=== PATIENT | female | born 1955 | race Caucasian/White ===

== ENCOUNTER 2018-01-29 12:28 | Inpatient (IN) | payer MEDICARE, BC ==
[~2018-01-29] VITALS: Ht 162.6 cm; Wt 44.5 kg
[~2018-01-29 12:28] MED LIST: CYAN500T15 PO; FLUC200T PO; GABA-532 PO; HALDOL TOP; LEVE750T6 PO; LISI-604 PO; LORA0.5T PO; METF500T4 PO; MULT-1133 PO; MYCOL15CR TP; QUET25TA PO; SENN-161 PO; SYN0.112T PO
[2018-01-29 13:08] LABS: CLARITY,URINE TURBID (Clear); COLOR,URINE YELLOW (Yellow); GLUCOSE, URINE >=1000 mg/dl (Neg); KETONES,URINE 40 mg/dl (Neg); LEUKOCYTE ESTERASE ,URINE MODERATE (Neg); NITRITES, URINE NEGATIVE (Neg); OCCULT BLOOD,URINE MODERATE (Neg); PROTEIN,URINE 30 mg/dl (Neg); UROBILINOGEN,URINE 0.2 E.U/dL (0.2-1.0)
[2018-01-29 13:11] LABS: UA COLLECTION TYPE STRAIGHT CATH
[2018-01-29 13:20] LABS: BACTERIA,URINE 4+ /HPF (Neg); SQUAMOUS EPITHELIAL CELL,UR NONE SEEN /LPF (FEW); WBC CLUMPS,URINE MANY /HPF (NEGATIVE); WBC,URINE TNTC /HPF (0-4)
[2018-01-29 13:40] LABS: BASOPHILS % (AUTO) 0 % (0-1); EOSINOPHILS # (AUTO) 0.1 X10'3 (0-0.9); EOSINOPHILS % (AUTO) 1.2 % (0-6); HEMATOCRIT 42.2 % (35.0-45.0); HEMOGLOBIN 14.2 g/dl (12.0-16.0); LYMPHOCYTES # (AUTO) 1.2 X10'3 (1.1-4.8); MEAN CORPUSCULAR HEMOGLOBIN 31.4 PG (27.0-31.0); MEAN CORPUSCULAR HGB CONC 33.7 % (33.0-36.5); MEAN CORPUSCULAR VOLUME 93.1 FL (78-98); MEAN PLATELET VOLUME 7.9 FL (7.4-10.4); MONOCYTES # (AUTO) 0.7 X10'3 (0-0.9); MONOCYTES % (AUTO) 6.9 % (2-12); NEUTROPHILS # (AUTO) 8.2 X10'3 (1.8-7.7); NEUTROPHILS % (AUTO) 79.9 % (42-75); PLATELET COUNT 320 X10'3 (140-440); RED BLOOD COUNT 4.53 X10'6 (4.20-5.60); RED CELL DISTRIBUTION WIDTH 12.4 % (11.5-14.5); WHITE BLOOD COUNT 10.3 X10'3 (4.5-11.0)
[2018-01-29] MEDS ORDERED: normal saline 1000ML IV soln IV ONE (13:55)
[2018-01-29 14:03] LABS: ALANINE AMINOTRANSFERASE 29 U/L (12-78); ALBUMIN 3.6 G/DL (3.4-5.0); ALBUMIN/GLOBULIN RATIO 0.7 (1.1-1.5); ALKALINE PHOSPHATASE 84 IU/L (46-116); ANION GAP 13 (8-16); ASPARTATE AMINO TRANSFERASE 14 U/L (10-37); BILIRUBIN,TOTAL 0.4 MG/DL (0.1-1.0); BLOOD UREA NITROGEN 21 MG/DL (7-18); BUN/CREATININE RATIO 25.9 (6.6-38.0); CALCIUM 9.4 MG/DL (8.5-10.1); CHLORIDE 98 MMOL/L (99-107); CREATININE 0.81 MG/DL (0.40-0.90); GLUCOSE 167 MG/DL (70-104); POTASSIUM 4.2 MMOL/L (3.5-5.1); SODIUM 139 MMOL/L (135-145); TOTAL CARBON DIOXIDE 28.4 MMOL/L (24-32); TOTAL PROTEIN 8.9 G/DL (6.4-8.2); eGFR 71 ML/MIN
[2018-01-29] MEDS ORDERED: doxycycline inj 100 MG in normal saline 100ml IV soln 100 ML IV STA (14:35)
[2018-01-29] MEDS ORDERED: mag hydrox/Alum hydrox/simeth 30ml oral suspension PO PRN (15:15)
[2018-01-29] MEDS ORDERED: magnesium Cl slow-release 64mg tablet PO PRN (15:15)
[2018-01-29] MEDS ORDERED: magnesium 2GM in 50ml NS 50 ML IV PRN (15:15)
[2018-01-29] MEDS ORDERED: acetaminophen 325mg tablet PO PRN (15:15)
[2018-01-29] MEDS ORDERED: magnesium 4gm in 100ml NS 100 ML IV PRN (15:15)
[2018-01-29] MEDS ORDERED: ondansetron/PF 4mg/2ml inj IV PRN (15:15)
[2018-01-29] MEDS ORDERED: magnesium hydroxide 30ml (MOM) UD suspension PO PRN (15:15)
[2018-01-29] MEDS ORDERED: potassium Cl 40MEQ/NS 500ml 500 ML IV PRN (15:15)
[2018-01-29] MEDS ORDERED: bisacodyl 10mg suppository rectal RC PRN (15:15)
[2018-01-29] MEDS ORDERED: potassium Cl 20 mEq SR tablet PO PRN ×2 (15:15)
[2018-01-29] MEDS ORDERED: insulin Lispro (HumaLOG) vial - multi-dose SQ SCH (15:25)
[2018-01-29] MEDS ORDERED: glucagon, human recombinant 1mg kit SUBCUT PRN (15:25)
[2018-01-29] MEDS ORDERED: MESSAGE TO PHARMACY PO ONE (15:25)
[2018-01-29] MEDS ORDERED: dextrose 50%-water 50ml dispensing syringe IV PRN ×2 (15:25)
[2018-01-29] MEDS ORDERED: dextrose ORAL solution 15 GM/59 ML bottle PO PRN ×2 (15:25)
[2018-01-29] MEDS: normal saline 1000ml 1,000 ML IV SCH (15:28)
[2018-01-29 15:54] LABS: HEMOGLOBIN A1C 7.6 % (4.5-6.2)
[2018-01-29 17:30] VITALS: BP 140/85
[2018-01-29] MEDS: cefTRIAXone 1g/NS 100ml IVPB 100 ML IV SCH (17:49)
[2018-01-29 18:00] VITALS: BP 151/94
[2018-01-29] MEDS: docusate sod 100mg capsule PO SCH (20:00)
[2018-01-29] MEDS: non-formulary drug (Levetiracetam (Keppra) 1 TAB) PO SCH (20:00)
[2018-01-29] MEDS: lactobacillus rhamnosus 10,000 MMU CELLS/CAPSULE PO SCH ×2 (20:00→22:23)
[2018-01-29] MEDS: QUEtiapine 25mg tablet PO SCH ×2 (21:00→22:23)
[2018-01-29] MEDS: insulin glargine (Lantus) pen - multi-dose SQ SCH (22:22)
[2018-01-30] VITALS: BP 113/74
[2018-01-30] MEDS: normal saline 1000ml 1,000 ML IV SCH ×3 (01:20→15:10)
[2018-01-30 05:45] LABS: ALBUMIN 2.8 G/DL (3.4-5.0); ANION GAP 14 (8-16); BLOOD UREA NITROGEN 21 MG/DL (7-18); BUN/CREATININE RATIO 22.1 (6.6-38.0); CALCIUM 7.9 MG/DL (8.5-10.1); CHLORIDE 105 MMOL/L (99-107); CREATININE 0.95 MG/DL (0.40-0.90); GLUCOSE 244 MG/DL (70-104); MAGNESIUM 1.2 MG/DL (1.5-2.4); POTASSIUM 3.8 MMOL/L (3.5-5.1); SODIUM 142 MMOL/L (135-145); eGFR 59 ML/MIN
[2018-01-30 06:53] LABS: BASOPHILS % (AUTO) 0 % (0-1); EOSINOPHILS # (AUTO) 0.1 X10'3 (0-0.9); EOSINOPHILS % (AUTO) 0.8 % (0-6); HEMATOCRIT 44.5 % (35.0-45.0); HEMOGLOBIN 15.1 g/dl (12.0-16.0); LYMPHOCYTES # (AUTO) 0.4 X10'3 (1.1-4.8); LYMPHOCYTES % (AUTO) 2.2 % (21-51); MEAN CORPUSCULAR HGB CONC 33.9 % (33.0-36.5); MEAN CORPUSCULAR VOLUME 94.3 FL (78-98); MEAN PLATELET VOLUME 8.1 FL (7.4-10.4); MONOCYTES % (AUTO) 5.5 % (2-12); NEUTROPHILS # (AUTO) 17.2 X10'3 (1.8-7.7); NEUTROPHILS % (AUTO) 91.5 % (42-75); PLATELET COUNT 283 X10'3 (140-440); RED BLOOD COUNT 4.72 X10'6 (4.20-5.60); RED CELL DISTRIBUTION WIDTH 12.6 % (11.5-14.5); WHITE BLOOD COUNT 18.9 X10'3 (4.5-11.0)
[2018-01-30 07:10] VITALS: BP 119/85
[2018-01-30] MEDS: lactobacillus rhamnosus 10,000 MMU CELLS/CAPSULE PO SCH ×2 (07:28→20:00)
[2018-01-30] MEDS: non-formulary drug (Levetiracetam (Keppra) 1 TAB) PO SCH (07:29)
[2018-01-30] MEDS: docusate sod 100mg capsule PO SCH ×2 (07:29→20:00)
[2018-01-30] MEDS: K and/or MAG REPLACEMENT MC SCH (08:00)
[2018-01-30] MEDS: cefTRIAXone 1g/NS 100ml IVPB 100 ML IV SCH (08:01)
[2018-01-30] MEDS: enoxaparin 40mg/0.4ml syringe SUBCUT SCH (08:07)
[2018-01-30 11:00] VITALS: BP 120/81
[2018-01-30] MEDS: QUEtiapine 25mg tablet PO SCH ×2 (11:55→21:00)
[2018-01-30 19:00] VITALS: BP 113/80
[2018-01-30] MEDS: levetiracetam 250mg tablet PO SCH (20:00)
[2018-01-30] MEDS: insulin glargine (Lantus) pen - multi-dose SQ SCH (21:00)
[2018-01-31 00:04] VITALS: BP 128/77
[2018-01-31 05:14] LABS: BASOPHILS % (AUTO) 0.2 % (0-1); EOSINOPHILS % (AUTO) 0 % (0-6); HEMATOCRIT 33.6 % (35.0-45.0); HEMOGLOBIN 11.5 g/dl (12.0-16.0); LYMPHOCYTES # (AUTO) 0.7 X10'3 (1.1-4.8); LYMPHOCYTES % (AUTO) 5.5 % (21-51); MEAN CORPUSCULAR HEMOGLOBIN 31.9 PG (27.0-31.0); MEAN CORPUSCULAR HGB CONC 34.1 % (33.0-36.5); MEAN CORPUSCULAR VOLUME 93.8 FL (78-98); MONOCYTES # (AUTO) 0.7 X10'3 (0-0.9); NEUTROPHILS % (AUTO) 89.3 % (42-75); PLATELET COUNT 258 X10'3 (140-440); RED BLOOD COUNT 3.59 X10'6 (4.20-5.60); RED CELL DISTRIBUTION WIDTH 12.2 % (11.5-14.5); WHITE BLOOD COUNT 13.4 X10'3 (4.5-11.0)
[2018-01-31 05:26] LABS: ANION GAP 11 (8-16); BLOOD UREA NITROGEN 25 MG/DL (7-18); BUN/CREATININE RATIO 27.8 (6.6-38.0); CALCIUM 7.6 MG/DL (8.5-10.1); CHLORIDE 112 MMOL/L (99-107); GLUCOSE 82 MG/DL (70-104); MAGNESIUM 2.9 MG/DL (1.5-2.4); POTASSIUM 3.1 MMOL/L (3.5-5.1); SODIUM 145 MMOL/L (135-145); TOTAL CARBON DIOXIDE 22.1 MMOL/L (24-32); eGFR 63 ML/MIN
[2018-01-31] MEDS: cefTRIAXone 1g/NS 100ml IVPB 100 ML IV SCH (07:25)
[2018-01-31] MEDS: enoxaparin 40mg/0.4ml syringe SUBCUT SCH (07:25)
[2018-01-31 08:00] VITALS: BP 94/61
[2018-01-31] MEDS: K and/or MAG REPLACEMENT MC SCH (08:00)
[2018-01-31] MEDS: docusate sod 100mg capsule PO SCH (08:00)
[2018-01-31] MEDS: potassium Cl 40MEQ/NS 500ml 500 ML IV PRN ×2 (09:14→16:08)
[2018-01-31] MEDS: levetiracetam 250mg tablet PO SCH ×2 (09:48→20:06)
[2018-01-31] MEDS: lactobacillus rhamnosus 10,000 MMU CELLS/CAPSULE PO SCH ×2 (09:48→20:06)
[2018-01-31] MEDS: QUEtiapine 25mg tablet PO SCH ×2 (12:15→20:06)
[2018-01-31] MEDS: Potassium Cl inj 10 MEQ in normal saline 1000ml 1,000 ML IV SCH (14:26)
[2018-01-31] MEDS ORDERED: levoFLOXACIN-Levaquin 500mg/D5 100 ML IV SCH ×2 (18:20→19:12)
[2018-01-31 19:40] VITALS: BP 90/62
[2018-01-31] MEDS: docusate sodium 100mg/10ml UD cup PO SCH (20:06)
[2018-01-31] MEDS: insulin glargine (Lantus) pen - multi-dose SQ SCH (21:00)
[2018-01-31] MEDS: levoFLOXACIN-Levaquin 500mg/D5 100 ML IV SCH (21:57)
[2018-01-31] MEDS: insulin regular, human vial - multi-dose SQ SCH (21:59)
[2018-01-31 23:30] VITALS: BP 133/85
[2018-01-31 23:45] VITALS: BP 104/59
[2018-02-01] MEDS: insulin regular, human vial - multi-dose SQ SCH (02:28)
[2018-02-01] MEDS: Potassium Cl inj 10 MEQ in normal saline 1000ml 1,000 ML IV SCH ×2 (03:46→13:25)
[2018-02-01 05:11] LABS: BASOPHILS # (AUTO) 0.1 X10'3 (0-0.2); BASOPHILS % (AUTO) 0.5 % (0-1); EOSINOPHILS # (AUTO) 0.1 X10'3 (0-0.9); EOSINOPHILS % (AUTO) 0.8 % (0-6); HEMATOCRIT 29.5 % (35.0-45.0); LYMPHOCYTES # (AUTO) 0.8 X10'3 (1.1-4.8); LYMPHOCYTES % (AUTO) 7.5 % (21-51); MEAN CORPUSCULAR HEMOGLOBIN 31.8 PG (27.0-31.0); MEAN CORPUSCULAR VOLUME 93.5 FL (78-98); MEAN PLATELET VOLUME 8.3 FL (7.4-10.4); MONOCYTES # (AUTO) 0.4 X10'3 (0-0.9); MONOCYTES % (AUTO) 3.5 % (2-12); NEUTROPHILS # (AUTO) 9.9 X10'3 (1.8-7.7); NEUTROPHILS % (AUTO) 87.7 % (42-75); PLATELET COUNT 199 X10'3 (140-440); RED BLOOD COUNT 3.15 X10'6 (4.20-5.60); RED CELL DISTRIBUTION WIDTH 12.8 % (11.5-14.5); WHITE BLOOD COUNT 11.3 X10'3 (4.5-11.0)
[2018-02-01 05:36] LABS: ALBUMIN 1.8 G/DL (3.4-5.0); ANION GAP 12 (8-16); BLOOD UREA NITROGEN 24 MG/DL (7-18); CALCIUM 7.4 MG/DL (8.5-10.1); CHLORIDE 112 MMOL/L (99-107); GLUCOSE 233 MG/DL (70-104); MAGNESIUM 1.7 MG/DL (1.5-2.4); POTASSIUM 4.2 MMOL/L (3.5-5.1); SODIUM 142 MMOL/L (135-145); TOTAL CARBON DIOXIDE 17.7 MMOL/L (24-32); eGFR > 90 ML/MIN
[2018-02-01 06:44] VITALS: BP 111/75
[2018-02-01 07:00] VITALS: BP 111/75
[2018-02-01] MEDS: levetiracetam 250mg tablet PO SCH ×2 (08:00→20:00)
[2018-02-01] MEDS: docusate sodium 100mg/10ml UD cup PO SCH ×2 (08:00→20:00)
[2018-02-01] MEDS: lactobacillus rhamnosus 10,000 MMU CELLS/CAPSULE PO SCH ×2 (08:00→20:00)
[2018-02-01] MEDS: K and/or MAG REPLACEMENT MC SCH (08:00)
[2018-02-01] MEDS: enoxaparin 40mg/0.4ml syringe SUBCUT SCH (08:45)
[2018-02-01 11:00] VITALS: BP 123/83
[2018-02-01] MEDS: QUEtiapine 25mg tablet PO SCH ×2 (12:00→20:00)
[2018-02-01 19:00] VITALS: BP 143/86
[2018-02-01] MEDS: insulin glargine (Lantus) pen - multi-dose SQ SCH (21:00)
[2018-02-01] MEDS: levoFLOXACIN-Levaquin 500mg/D5 100 ML IV SCH (21:02)
[2018-02-01 23:45] VITALS: BP 133/85
[2018-02-02] MEDS: Potassium Cl inj 10 MEQ in normal saline 1000ml 1,000 ML IV SCH (02:01)
[2018-02-02] MEDS: insulin regular, human vial - multi-dose SQ SCH ×3 (02:11→20:29)
[2018-02-02 05:34] LABS: BASOPHILS % (AUTO) 0.2 % (0-1); EOSINOPHILS # (AUTO) 0.1 X10'3 (0-0.9); EOSINOPHILS % (AUTO) 1.2 % (0-6); HEMOGLOBIN 11.2 g/dl (12.0-16.0); LYMPHOCYTES # (AUTO) 1.3 X10'3 (1.1-4.8); LYMPHOCYTES % (AUTO) 12.6 % (21-51); MEAN CORPUSCULAR HEMOGLOBIN 31.7 PG (27.0-31.0); MEAN CORPUSCULAR HGB CONC 34.1 % (33.0-36.5); MEAN CORPUSCULAR VOLUME 92.8 FL (78-98); MONOCYTES # (AUTO) 0.5 X10'3 (0-0.9); MONOCYTES % (AUTO) 4.3 % (2-12); NEUTROPHILS # (AUTO) 8.5 X10'3 (1.8-7.7); NEUTROPHILS % (AUTO) 81.7 % (42-75); PLATELET COUNT 249 X10'3 (140-440); RED BLOOD COUNT 3.55 X10'6 (4.20-5.60); RED CELL DISTRIBUTION WIDTH 12.5 % (11.5-14.5); WHITE BLOOD COUNT 10.4 X10'3 (4.5-11.0)
[2018-02-02 05:52] LABS: ALBUMIN 2.1 G/DL (3.4-5.0); ANION GAP 9 (8-16); BLOOD UREA NITROGEN 19 MG/DL (7-18); BUN/CREATININE RATIO 26.8 (6.6-38.0); CALCIUM 7.1 MG/DL (8.5-10.1); CHLORIDE 103 MMOL/L (99-107); CREATININE 0.71 MG/DL (0.40-0.90); GLUCOSE 188 MG/DL (70-104); MAGNESIUM 1.1 MG/DL (1.5-2.4); POTASSIUM 3.4 MMOL/L (3.5-5.1); PREALBUMIN 12.7 MG/DL (19-36); SODIUM 139 MMOL/L (135-145); TOTAL CARBON DIOXIDE 27.2 MMOL/L (24-32); eGFR 83 ML/MIN
[2018-02-02 06:53] VITALS: BP 126/82
[2018-02-02 07:00] VITALS: BP 126/82
[2018-02-02] MEDS ORDERED: magnesium 4gm in 100ml NS 100 ML IV PRN (07:25)
[2018-02-02] MEDS ORDERED: potassium Cl 40MEQ/NS 500ml 500 ML IV PRN ×2 (07:25)
[2018-02-02] MEDS ORDERED: potassium Cl 20 mEq SR tablet PO PRN (07:25)
[2018-02-02] MEDS ORDERED: magnesium Cl slow-release 64mg tablet PO PRN (07:25)
[2018-02-02] MEDS ORDERED: magnesium 2GM in 50ml NS 50 ML IV PRN (07:25)
[2018-02-02] MEDS: K and/or MAG REPLACEMENT MC SCH (08:00)
[2018-02-02] MEDS: docusate sodium 100mg/10ml UD cup PO SCH ×2 (08:15→20:06)
[2018-02-02] MEDS: levetiracetam 250mg tablet PO SCH ×2 (08:16→20:06)
[2018-02-02] MEDS: lactobacillus rhamnosus 10,000 MMU CELLS/CAPSULE PO SCH ×2 (08:16→20:06)
[2018-02-02] MEDS: enoxaparin 40mg/0.4ml syringe SUBCUT SCH (08:17)
[2018-02-02 11:00] VITALS: BP 129/87
[2018-02-02 12:10] VITALS: BP 129/87
[2018-02-02] MEDS: QUEtiapine 25mg tablet PO SCH ×2 (12:18→20:06)
[2018-02-02] MEDS: potassium Cl 20 mEq SR tablet PO PRN ×2 (16:31→20:30)
[2018-02-02 19:20] VITALS: BP 135/87
[2018-02-02] MEDS: insulin glargine (Lantus) pen - multi-dose SQ SCH (21:00)
[2018-02-02] MEDS: levoFLOXACIN-Levaquin 500mg/D5 100 ML IV SCH (21:46)
[2018-02-03] VITALS: BP 129/90
[2018-02-03] MEDS: potassium Cl 20 mEq SR tablet PO PRN (00:29)
[2018-02-03] MEDS: insulin regular, human vial - multi-dose SQ SCH ×3 (02:49→13:56)
[2018-02-03 06:14] LABS: ALBUMIN 2.4 G/DL (3.4-5.0); ANION GAP 9 (8-16); BLOOD UREA NITROGEN 24 MG/DL (7-18); BUN/CREATININE RATIO 39.3 (6.6-38.0); CALCIUM 7.9 MG/DL (8.5-10.1); CHLORIDE 102 MMOL/L (99-107); CREATININE 0.61 MG/DL (0.40-0.90); GLUCOSE 119 MG/DL (70-104); MAGNESIUM 2.1 MG/DL (1.5-2.4); POTASSIUM 4.3 MMOL/L (3.5-5.1); SODIUM 139 MMOL/L (135-145); TOTAL CARBON DIOXIDE 27.7 MMOL/L (24-32); eGFR > 90 ML/MIN
[2018-02-03 07:38] VITALS: BP 158/97
[2018-02-03] MEDS: K and/or MAG REPLACEMENT MC SCH (08:00)
[2018-02-03] MEDS: lactobacillus rhamnosus 10,000 MMU CELLS/CAPSULE PO SCH ×2 (09:53→19:37)
[2018-02-03] MEDS: docusate sodium 100mg/10ml UD cup PO SCH ×2 (09:53→19:34)
[2018-02-03] MEDS: levetiracetam 250mg tablet PO SCH ×2 (09:53→19:37)
[2018-02-03] MEDS: enoxaparin 40mg/0.4ml syringe SUBCUT SCH (09:54)
[2018-02-03 11:00] VITALS: BP 146/89
[2018-02-03] MEDS: QUEtiapine 25mg tablet PO SCH ×2 (12:00→21:00)
[2018-02-03 18:30] VITALS: BP 129/85
[2018-02-03] MEDS: levoFLOXACIN-Levaquin 500mg/D5 100 ML IV SCH (21:18)
[2018-02-03] MEDS: insulin glargine (Lantus) pen - multi-dose SQ SCH (21:24)
[2018-02-04 00:13] VITALS: BP 132/90
[2018-02-04 05:05] LABS: MAGNESIUM 1.7 MG/DL (1.5-2.4); POTASSIUM 4.4 MMOL/L (3.5-5.1)
[2018-02-04 06:53] VITALS: BP 123/85
[2018-02-04] MEDS: K and/or MAG REPLACEMENT MC SCH (08:00)
[2018-02-04] MEDS: enoxaparin 40mg/0.4ml syringe SUBCUT SCH (08:53)
[2018-02-04] MEDS: levetiracetam 250mg tablet PO SCH ×2 (08:53→19:33)
[2018-02-04] MEDS: docusate sodium 100mg/10ml UD cup PO SCH ×2 (08:53→19:33)
[2018-02-04] MEDS: lactobacillus rhamnosus 10,000 MMU CELLS/CAPSULE PO SCH ×2 (08:53→19:33)
[2018-02-04] MEDS: insulin Lispro (HumaLOG) vial - multi-dose SQ SCH ×3 (10:10→21:15)
[2018-02-04 11:02] VITALS: BP 122/86
[2018-02-04] MEDS: QUEtiapine 25mg tablet PO SCH ×2 (12:00→21:00)
[2018-02-04 13:06] LABS: ALBUMIN 2.6 G/DL (3.4-5.0); ANION GAP 12 (8-16); BLOOD UREA NITROGEN 31 MG/DL (7-18); BUN/CREATININE RATIO 38.3 (6.6-38.0); CALCIUM 8.2 MG/DL (8.5-10.1); CHLORIDE 103 MMOL/L (99-107); CREATININE 0.81 MG/DL (0.40-0.90); GLUCOSE 207 MG/DL (70-104); SODIUM 138 MMOL/L (135-145); TOTAL CARBON DIOXIDE 23.5 MMOL/L (24-32); eGFR 71 ML/MIN
[2018-02-04] MEDS: levoFLOXACIN 500mg tablet PO SCH (16:59)
[2018-02-04] MEDS: normal saline 1000ml 1,000 ML IV SCH (18:52)
[2018-02-04 20:00] VITALS: BP 109/78
[2018-02-04] MEDS: insulin glargine (Lantus) pen - multi-dose SQ SCH (21:16)
[2018-02-04 23:49] VITALS: BP 113/75
[2018-02-05] MEDS: normal saline 1000ml 1,000 ML IV SCH ×2 (03:56→14:09)
[2018-02-05 06:00] VITALS: BP 133/77
[2018-02-05 06:49] LABS: MAGNESIUM 1.6 MG/DL (1.5-2.4)
[2018-02-05 06:58] LABS: POTASSIUM 4.4 MMOL/L (3.5-5.1)
[2018-02-05] MEDS: K and/or MAG REPLACEMENT MC SCH (08:00)
[2018-02-05] MEDS: levetiracetam 250mg tablet PO SCH ×2 (08:39→20:00)
[2018-02-05] MEDS: lactobacillus rhamnosus 10,000 MMU CELLS/CAPSULE PO SCH ×2 (08:39→20:00)
[2018-02-05] MEDS: docusate sodium 100mg/10ml UD cup PO SCH ×2 (08:39→20:00)
[2018-02-05] MEDS: enoxaparin 40mg/0.4ml syringe SUBCUT SCH (08:40)
[2018-02-05] MEDS: insulin Lispro (HumaLOG) vial - multi-dose SQ SCH ×2 (09:48→14:09)
[2018-02-05 11:22] VITALS: BP 137/85
[2018-02-05] MEDS: QUEtiapine 25mg tablet PO SCH ×2 (12:00→21:00)
[2018-02-05] MEDS: levoFLOXACIN 500mg tablet PO SCH (12:46)
[2018-02-05 19:00] VITALS: BP 146/91
[2018-02-05] MEDS: insulin glargine (Lantus) pen - multi-dose SQ SCH (20:50)
[2018-02-06 06:04] LABS: POTASSIUM 4.1 MMOL/L (3.5-5.1); PREALBUMIN 19.9 MG/DL (19-36)
[2018-02-06 07:32] VITALS: BP 132/80
[2018-02-06] MEDS: levetiracetam 250mg tablet PO SCH ×2 (08:00→08:33)
[2018-02-06] MEDS: K and/or MAG REPLACEMENT MC SCH (08:00)
[2018-02-06] MEDS: docusate sodium 100mg/10ml UD cup PO SCH ×2 (08:00→08:33)
[2018-02-06] MEDS: lactobacillus rhamnosus 10,000 MMU CELLS/CAPSULE PO SCH ×2 (08:00→08:33)
[2018-02-06] MEDS: enoxaparin 40mg/0.4ml syringe SUBCUT SCH (08:34)
[2018-02-06] MEDS: levoFLOXACIN 500mg tablet PO SCH (10:59)
[2018-02-06 11:00] VITALS: BP 129/78
[2018-02-06] MEDS ORDERED: LEVO500T89 PO (12:00)
[2018-02-06] MEDS: QUEtiapine 25mg tablet PO SCH (12:00)
[2018-02-06] MEDS ORDERED: FLO0.4C PO (12:20)
[2018-02-06] MEDS: insulin Lispro (HumaLOG) vial - multi-dose SQ SCH (13:27)
== END 2018-02-06 14:06 | disposition home health service (06) | DRG 872 ==
LOC: ER 12:29 → ED HOLD 14:44 → SUR 3N 16:33
PROVIDERS: ADMIT Internal Medicine; ATTEND Internal Medicine
DX: A41.9 Sepsis, unspecified organism (principal); E44.0 Moderate protein-calorie malnutrition; F01.50 Vascular dementia, unspecified severity, without behavioral disturbance, psychotic disturbance, mood disturbance, and anxiety; N39.0 Urinary tract infection, site not specified; Z68.1 Body mass index [BMI] 19.9 or less, adult; E03.9 Hypothyroidism, unspecified; Z66 Do not resuscitate; E11.9 Type 2 diabetes mellitus without complications; B95.1 Streptococcus, group B, as the cause of diseases classified elsewhere; I10 Essential (primary) hypertension; Z79.84 Long term (current) use of oral hypoglycemic drugs; Z79.899 Other long term (current) drug therapy; Z86.73 Personal history of transient ischemic attack (TIA), and cerebral infarction without residual deficits
CPT/HCPCS: 36415; 70450; 71045; 74018; 80048; 80053; 81001; 82948; 83036; 83605; 83735; 84132; 84134; 84443; 84484; 85025; 87040; 87070; 87077; 87088; 87186; 92616; 93005; 96360; 97161; 97530; 99285; A4315; A4353; A6212; A6213; A6446; J0696; J1650; J1815; J1956; J3475; J3480; J3490; J7030